=== PATIENT | female | born 1945 | race Caucasian/White ===

== ENCOUNTER 2017-01-03 19:37 | Inpatient (IN) | payer MEDICARE ==
[~2017-01-03] VITALS: Ht 167.6 cm; Wt 52.5 kg
[2017-01-03 19:52] VITALS: BP 125/65; PULSE 67; RESP 16; TEMP 98.6; O2SAT 96
--- NOTE | 2017-01-03 20:22 | PD ---
HPI Chief Complaint: GI Complaint Time Seen by Provider: 20:12 Travel History International Travel<30 days: No Contact w/Intl Traveler<30days: No Traveled to known affect area: No History of Present Illness HPI This 71-year-old female is complaining of abdominal distention and constipation. She is having some discomfort that she rates as a 5 or 6 out of 10. She says she has not had a bowel movement for at least a week. She does take morphine for back pain but she says her back pain seems to be getting better and she hasn't taken as much as she used to. She is on stool softeners. She uses MiraLAX but has not been using it because she is here on vacation. She had tried the medication for opioid-induced constipation without success. PFSH Past Medical History ?: Not Past Surgical History Cardiac Surgery: Yes Social History Tobacco Use: Yes Allergies-Medications (Allergen,Severity, Reaction): Coded Allergies: Penicillin (Verified Allergy, Intermediate, Rash, 01/03/17) Reported Meds & Prescriptions Reported Meds & Active Scripts Active Reported Atorvastatin (Atorvastatin Calcium) 10 Mg Tab 10 Mg PO HS Metoprolol Tartrate 25 Mg Tab 12.5 Mg PO BID Myrbetriq (Mirabegron) 50 Mg Tab 50 Mg PO HS Miralax (Polyethylene Glycol 3350) 1 Pow Pow Unknown Dose PO DIRECTED Vesicare (Solifenacin) 10 Mg Tab 10 Mg PO DAILY Morphine Sulfate CR (Morphine Sulfate) 15 Mg Tab 15 Mg PO BID Colace (Docusate Sodium) 100 Mg Cap 100 Mg PO TID PRN Ranitidine (Ranitidine HCl) 300 Mg Tab 300 Mg PO HS Ventolin Hfa 18 GM Inh (Albuterol Sulfate) 90 Mcg/Act Aer 2 Puff INH Q4-6H PRN Pantoprazole (Pantoprazole Sodium) 40 Mg Tab 40 Mg PO BID Alendronate (Alendronate Sodium) 70 Mg Tab 70 Mg PO Q7D Spiriva Handihaler (Tiotropium Inh) 18 Mcg Cap 18 Mcg INH DAILY 1 capsule = 18 mcg Review of Systems General / Constitutional: No: Fever, Chills Eyes: No: Diploplia HENT: No: Headaches, Vertigo Cardiovascular: No: Chest Pain or Discomfort, Palpitations Respiratory: No: Cough, Shortness of Breath Gastrointestinal: Positive: Abdominal Pain, Constipation Genitourinary: No: Urgency, Frequency Musculoskeletal: No: Myalgias, Arthralgias Skin: No Rash, No Itching Neurologic: No: Weakness Hematologic/Lymphatic: No: Easy Bruising Physical Exam Narrative GENERAL: Thin female SKIN: Focused skin assessment warm/dry. HEAD: Atraumatic. Normocephalic. EYES: Pupils equal and round. No scleral icterus. No injection or drainage. ENT: No nasal bleeding or discharge. Mucous membranes pink and moist. NECK: Trachea midline. No JVD. CARDIOVASCULAR: Regular rate and rhythm. No murmur appreciated. RESPIRATORY: No accessory muscle use. Clear to auscultation. Breath sounds equal bilaterally. GASTROINTESTINAL: Abdomen soft, non-tender, mild distention. Hepatic and splenic margins not palpable. Rectal exam there is moderate amount of stool but it is soft. A small amount was removed and a Dulcolax suppository inserted MUSCULOSKELETAL: No obvious deformities. No clubbing. No cyanosis. No edema. NEUROLOGICAL: Awake and alert. No obvious cranial nerve deficits. Motor grossly within normal limits. Normal speech. PSYCHIATRIC: Appropriate mood and affect; insight and judgment normal. Data Data Last Documented VS Vital Signs Date Time Temp Pulse Resp B/P Pulse Ox O2 Delivery O2 Flow Rate FiO2 01/03/17 22:20 86 16 165/72 99 Room Air 01/03/17 19:52 98.6 Orders Complete Blood Count With Diff (01/03/17 20:19) Comprehensive Metabolic Panel (01/03/17 20:19) Urinalysis - C+S If Indicated (01/03/17 20:19) Ct Abd/Pel W Iv Contrast(Rout) (01/03/17 20:19) Bisacodyl Supp (Dulcolax Supp) (01/03/17 20:30) Diatrizoate Liq ( Gastroangela Liq) (01/03/17 20:27) Oral Contrast - Adult (01/03/17 20:29) Urine Culture (01/03/17 21:20) Iohexol 350 Inj (Omnipaque 350 Inj) (01/03/17 22:20) Ns + Kcl 20 Meq Inj (Ns + Kcl 20 Meq Inj (01/03/17 23:15) Insert Ng Tube (01/03/17 23:14) Place Ng Tube To Low Intermit (01/03/17 23:14) Admit Order (Ed Use Only) (01/03/17 23:35) Labs Laboratory Tests Test 01/03/17 01/03/17 20:40 21:20 White Blood Count 13.0 TH/MM3 Red Blood Count 4.63 MIL/MM3 Hemoglobin 13.8 GM/DL Hematocrit 41.7 % Mean Corpuscular Volume 90.1 FL Mean Corpuscular Hemoglobin 29.7 PG Mean Corpuscular Hemoglobin 33.0 % Concent Red Cell Distribution Width 13.8 % Platelet Count 289 TH/MM3 Mean Platelet Volume 9.9 FL Neutrophils (%) (Auto) 71.2 % Lymphocytes (%) (Auto) 19.6 % Monocytes (%) (Auto) 7.2 % Eosinophils (%) (Auto) 1.2 % Basophils (%) (Auto) 0.8 % Neutrophils # (Auto) 9.3 TH/MM3 Lymphocytes # (Auto) 2.5 TH/MM3 Monocytes # (Auto) 0.9 TH/MM3 Eosinophils # (Auto) 0.2 TH/MM3 Basophils # (Auto) 0.1 TH/MM3 CBC Comment AUTO DIFF Differential Comment AUTO DIFF CONFIRMED Sodium Level 141 MEQ/L Potassium Level 3.8 MEQ/L Chloride Level 103 MEQ/L Carbon Dioxide Level 29.9 MEQ/L Anion Gap 8 MEQ/L Blood Urea Nitrogen 12 MG/DL Creatinine 0.65 MG/DL Estimat Glomerular Filtration 90 ML/MIN Rate Random Glucose 127 MG/DL Calcium Level 9.1 MG/DL Total Bilirubin 0.3 MG/DL Aspartate Amino Transf 15 U/L (AST/SGOT) Alanine Aminotransferase 23 U/L (ALT/SGPT) Alkaline Phosphatase 82 U/L Total Protein 7.4 GM/DL Albumin 3.8 GM/DL Urine Color YELLOW Urine Turbidity CLEAR Urine pH 7.0 Urine Specific [place] 1.009 Urine Protein NEG mg/dL Urine Glucose (UA) NEG mg/dL Urine Ketones NEG mg/dL Urine Occult Blood NEG Urine Nitrite NEG Urine Bilirubin NEG Urine Leukocyte Esterase TRACE Urine WBC 9-14 /hpf Urine WBC Clumps RARE Urine Squamous Epithelial 0-5 /hpf Cells Urine Bacteria MANY /hpf Microscopic Urinalysis Comment CULTURE INDICATED MDM Medical Decision Making Medical Screen Exam Complete: Yes Emergency Medical Condition: Yes Medical Record Reviewed: Yes Differential Diagnosis Differential diagnosis includes constipation, bowel obstruction Narrative Course Related to the rectal exam I disimpacted as much as I could but most of the stool was beyond the reach of the finger. The stool was soft. CT scan was obtained and shows large amounts the rectum. The small bowel was dilated throughout stomach is markedly elevated. Patient is distended and an NG tube will be inserted try to make the patient comfortable. In view of this finding of obstruction she will require admission for further treatment Diagnosis Primary Impression: Constipation Qualified Code: K59.03 - Drug-induced constipation Additional Impression: Bowel obstruction Qualified Code: K56.41 - Fecal impaction Wilman Flores MD Jan 03, 2017 20:22
[2017-01-03] MEDS ORDERED: DIATRIZOATE MEGLUM/DIATRIZOATE SOD 9 ML CUP ONE (20:27)
[2017-01-03] MEDS ORDERED: BISACODYL 10 MG SUPP RECTAL ONE (20:30)
[2017-01-03 20:59] LABS: CHLORIDE 103 MEQ/L (98-107); POTASSIUM 3.8 MEQ/L (3.5-5.1); SODIUM (NA) 141 MEQ/L (136-145)
[2017-01-03 21:03] LABS: AUTOMATED NEUTROPHIL # 9.3 TH/MM3 (1.8-7.7); BASOPHIL # 0.1 TH/MM3 (0-0.2); BASOPHIL % 0.8 % (0.0-2.0); EOSINOPHIL # 0.2 TH/MM3 (0-0.4); EOSINOPHIL % 1.2 % (0.0-4.0); HEMATOCRIT 41.7 % (35.0-46.0); LYMPH % 19.6 % (9.0-44.0); LYMPHOCYTE # 2.5 TH/MM3 (1.0-4.8); MEAN CELL VOLUME 90.1 FL (80.0-100.0); MEAN CORPUSCULAR HEMOGLOBIN 29.7 PG (27.0-34.0); MONO % 7.2 % (0.0-8.0); NEUT % 71.2 % (16.0-70.0); PLATELET COUNT 289 TH/MM3 (150-450); RED BLOOD COUNT 4.63 MIL/MM3 (4.00-5.30); RED CELL DISTRIBUTION WIDTH 13.8 % (11.6-17.2)
[2017-01-03 21:04] LABS: ANION GAP 8 MEQ/L (5-15); BICARBONATE 29.9 MEQ/L (21.0-32.0); BLOOD UREA NITROGEN 12 MG/DL (7-18)
[2017-01-03 21:05] LABS: HEMO FLAGS AUTO DIFF
[2017-01-03 21:07] LABS: ALT (GPT) 23 U/L (10-53); AST (GOT) 15 U/L (15-37); GLOMERULAR FILTRATION RATE 90 ML/MIN (>89)
[2017-01-03 21:09] LABS: TOTAL BILIRUBIN ADULT 0.3 MG/DL (0.2-1.0)
[2017-01-03 21:10] LABS: ALKALINE PHOSPHATASE 82 U/L (45-117)
[2017-01-03] MEDS ORDERED: SPIRCAP INH (21:22)
[2017-01-03] MEDS ORDERED: COLA100C3 PO (21:22)
[2017-01-03] MEDS ORDERED: ALEN1TAB48 PO (21:22)
[2017-01-03] MEDS ORDERED: VENTAER INH (21:22)
[2017-01-03] MEDS ORDERED: METO25TA3 PO (21:22)
[2017-01-03] MEDS ORDERED: RANI300T PO (21:22)
[2017-01-03] MEDS ORDERED: MIRA3350 PO (21:22)
[2017-01-03] MEDS ORDERED: PANT40TA3 PO (21:22)
[2017-01-03] MEDS ORDERED: MIRA50TA PO (21:22)
[2017-01-03] MEDS ORDERED: MORP15TA73 PO (21:22)
[2017-01-03] MEDS ORDERED: ATOR10TA15 PO (21:22)
[2017-01-03] MEDS ORDERED: VESI10TA PO (21:22)
[2017-01-03 21:30] LABS: BLOOD, URINE NEG (NEG); GLUCOSE,URINE NEG (NEG); KETONE, URINE NEG (NEG); NITRITE,URINE NEG (NEG)
[2017-01-03 21:36] LABS: URINE COLOR YELLOW (YELLW/STRAW)
[2017-01-03 21:37] LABS: BACTERIA, URINE MANY /hpf; COMMENT (UR) CULTURE INDICATED; CULTURE IF INDICATED CULTURE INDICATED; SQUAMOUS EPITHELIAL CELL URINE 0-5 /hpf (0-5)
[2017-01-03 21:58] LABS: SCAN/DIFF AUTO DIFF CONFIRMED
[2017-01-03 22:20] VITALS: BP 165/72; PULSE 86; RESP 16; O2SAT 99
[2017-01-03] MEDS ORDERED: IOHEXOL 350 MG/ML 10 ML VIAL (for RAD DIAG) IV ONE (22:20)
--- NOTE | 2017-01-03 23:01 | RADHPO ---
EXAM DATE/TIME: 01/03/2017 22:09 [facility] COMPARISON: No previous studies available for comparison. INDICATIONS : Abdominal distention and constipation for one week. IV CONTRAST: 96 cc Omnipaque 350 (iohexol) IV ORAL CONTRAST: Prescribed oral contrast ingested. RADIATION DOSE: 5.54 CTDIvol (mGy) MEDICAL HISTORY : None SURGICAL HISTORY : Appendectomy. Sigmoid colectomy. Bladder mesh. ENCOUNTER: Initial ACUITY: 1 week PAIN SCALE: 6/10 LOCATION: Abdomen. TECHNIQUE: Volumetric scanning of the abdomen and pelvis was performed. Using automated exposure control and ad justment of the mA and/or kV according to patient size, radiation dose was kept as low as reasonably achievable to obtain optimal diagnostic quality images. FINDINGS: LOWER LUNGS: The visualized lower lungs are clear. LIVER: Homogeneous density without lesion. There is no dilation of the biliary tree. No calcified gallston es. SPLEEN: Normal size without lesion. PANCREAS: Within normal limits. KIDNEYS: Normal in size and shape. There is no mass, stone or hydronephrosis. ADRENAL GLANDS: Within normal limits. VASCULAR: There is no aortic aneurysm. BOWEL/MESENTERY: There is abundant formed stool throughout the colon. There is a massive quantity of stool in the rect um. The small bowel is dilated throughout and the stomach is markedly dilated. ABDOMINAL WALL: Within normal limits. RETROPERITONEUM: There is no lymphadenopathy. BLADDER: No wall thickening or mass. REPRODUCTIVE: Uterus is not seen. INGUINAL: There is no lymphadenopathy or hernia. MUSCULOSKELETAL: Within normal limits for patient age. CONCLUSION: Massive fecal impaction with obstruction. aCs Hernandez MD on January 03, 2017 at 22:56 Board Certified Radiologist. This report was verified electronically.
[2017-01-03] MEDS ORDERED: NS + KCL 20 MEQ INJ 1,000 ML IV SCH (23:15)
[2017-01-03] MEDS ORDERED: SODIUM CHLOR 0.9% 1000 ML INJ 1,000 ML IV SCH (23:26)
[2017-01-03] MEDS ORDERED: SODIUM CHLORIDE 0.9% FLUSH 10 ML FLUSH IV FLUSH PRN (23:30)
[2017-01-03] MEDS ORDERED: ACETAMINOPHEN 325 MG TAB PO PRN (23:30)
[2017-01-03] MEDS ORDERED: BISACODYL 10 MG SUPP RECTAL PRN (23:30)
[2017-01-03] MEDS ORDERED: ONDANSETRON HCL 4 MG/2 ML VIAL IVP PRN (23:30)
[2017-01-04 00:15] VITALS: BP 149/60; PULSE 92; RESP 18; TEMP 98.9; O2SAT 94
[2017-01-04 02:32] VITALS: BP 148/75; PULSE 97; RESP 18; TEMP 99.6; O2SAT 93
[2017-01-04] MEDS: LACTULOSE SYRUP 20 GM/30 ML CUP NG SCH ×4 (03:23→23:36)
[2017-01-04] MEDS: MORPHINE SULFATE 4 MG/ML INJ IV PRN ×3 (06:26→18:18)
[2017-01-04] MEDS ORDERED: ALBUTEROL SULFATE 90 MCG/ACT HFA 8 GM INHALER INH PRN (07:00)
[2017-01-04 07:08] LABS: AUTOMATED NEUTROPHIL # 15.8 TH/MM3 (1.8-7.7); BASOPHIL % 0.2 % (0.0-2.0); EOSINOPHIL # 0.1 TH/MM3 (0-0.4); EOSINOPHIL % 0.7 % (0.0-4.0); HEMATOCRIT 45.4 % (35.0-46.0); LYMPH % 9.9 % (9.0-44.0); LYMPHOCYTE # 1.9 TH/MM3 (1.0-4.8); MEAN CORPUSCULAR HGB CONC 32.2 % (32.0-36.0); MONO % 8.4 % (0.0-8.0); NEUT % 80.8 % (16.0-70.0); PLATELET COUNT 289 TH/MM3 (150-450); RED BLOOD COUNT 5.04 MIL/MM3 (4.00-5.30); RED CELL DISTRIBUTION WIDTH 13.9 % (11.6-17.2); WHITE BLOOD COUNT 19.4 TH/MM3 (4.0-11.0)
[2017-01-04 07:10] LABS: CHLORIDE 100 MEQ/L (98-107); HEMO FLAGS DIFF FINAL; POTASSIUM 3.3 MEQ/L (3.5-5.1); SODIUM (NA) 141 MEQ/L (136-145)
[2017-01-04 07:16] LABS: ANION GAP 12 MEQ/L (5-15)
[2017-01-04 07:17] LABS: BLOOD UREA NITROGEN 9 MG/DL (7-18)
[2017-01-04 07:19] LABS: ALT (GPT) 23 U/L (10-53); AST (GOT) 17 U/L (15-37)
[2017-01-04 07:20] LABS: GLOMERULAR FILTRATION RATE 109 ML/MIN (>89)
[2017-01-04 07:21] LABS: TOTAL BILIRUBIN ADULT 0.5 MG/DL (0.2-1.0)
[2017-01-04 07:22] LABS: ALKALINE PHOSPHATASE 87 U/L (45-117)
[2017-01-04 08:00] VITALS: BP 172/68; PULSE 94; RESP 20; TEMP 98.5; O2SAT 96
--- NOTE | 2017-01-04 09:32 | MB ---
cc: ERIC ORTEGA M.D. DATE OF CONSULTATION: 01/04/2017 REFERRING PHYSICIAN: Dr. Jha Clayton. REASON FOR CONSULTATION: Constipation, abdominal pain. Thank you for the consultation; this is a 71 year-old lady who used Morphine chronically for back pain, she is from [place], here on vacation. She has constipation, managed by MiraLax, Colace and because she was on vacation she stopped her MiraLax to avoid going to the bathroom. She ended up having constipation with reduction of bowel movements for the last two weeks where she did not have any bowel movement in the last few days with distention of her abdomen and severe pain so she came to the hospital because of that. The patient stated that since yesterday she started having a minimal amount of stool, she had colonoscopy two years ago which was unremarkable. PAST MEDICAL HISTORY: Significant for back pain. SOCIAL HISTORY: The patient is a smoker, she denies alcohol abuse. ALLERGIES PENICILLIN MEDICATIONS: The medications were reviewed in her chart. REVIEW OF SYSTEMS All 12 points negative except for history of present illness. PHYSICAL EXAMINATION: IN GENERAL: Alert, oriented, no acute distress. VITAL SIGNS: Vital signs stable. HEAD, EYES, EARS, NOSE, AND THROAT: Pupils equal, round, reactive to light. NECK: Supple. CHEST: Clear. CARDIAC: Regular rate and rhythm. ABDOMEN: Soft, mildly distended and tender, positive bowel sounds. EXTREMITIES: No edema, clubbing or cyanosis. NEUROLOGICALLY: Intact. PSYCHIATRIC: Psychologically appropriate. LABORATORY FINDINGS: White count 19.4. Hemoglobin 14.6. Platelets 289. Liver function tests are normal. Urine culture was pending. CT scan has massive fecal impaction with obstruction. ASSESSMENT AND PLAN: This is a 71 year-old lady with impaction secondary to narcotics, induced. The patient stopped taking medication because she is on vacation, she did not want to go to the bathroom. She is refusing NG tube. Her belly is less distended, she started going to the bathroom yesterday. I recommend giving her two fleets enemas to try and move from below but also maybe slowly give her 0.25 to 0.50 gallon of Golytely and see how she does. We want to make sure that she is not obstructed and that would not cause nausea, vomiting. Also give her one dose of Restoril to see if that would help her constipation. If these measures do not work she may need to be disimpacted digitally and she may need to have either Gastrografin enema or colonoscopy. MD DANAE Quintana/alida /8:57 AM /9:12 AM
[2017-01-04] MEDS ORDERED: SOD PHOSPHATE/SOD BIPHOSPHATE (ADULT) ENEMA 133ML RECTAL PRN (10:00)
[2017-01-04] MEDS ORDERED: SOD PHOSPHATE/SOD BIPHOSPHATE (ADULT) ENEMA 133ML RECTAL ONE (10:00)
[2017-01-04] MEDS ORDERED: PEG (High)/E-LYTE SOLN 4000 ML BTL PO ONE (10:00)
[2017-01-04] MEDS: TIOTROPIUM BROMIDE 18 MCG INH INH SCH (10:38)
[2017-01-04] MEDS: PANTOPRAZOLE SOD 40 MG DELAYED RELEASE TAB PO SCH ×2 (10:39→21:23)
[2017-01-04] MEDS: METOPROLOL TARTRATE 25 MG TAB PO SCH ×2 (10:39→21:00)
[2017-01-04] MEDS: SODIUM CHLORIDE 0.9% FLUSH 10 ML FLUSH IV FLUSH SCH ×2 (10:41→21:00)
[2017-01-04] MEDS ORDERED: POTASSIUM CHLORIDE 10 MEQ CONTROLLED RELEASE TAB PO ONE (11:15)
[2017-01-04] MEDS: NS + KCL 20 MEQ INJ 1,000 ML IV SCH (11:40)
--- NOTE | 2017-01-04 12:21 | HHI.HP ---
[facility] Primary Care Physician Unknown Admission Diagnosis CONSTIPATION, OBSTRUCTION Diagnoses: Chief Complaint: Constipation Travel History International Travel<30 Days: No Contact w/Intl Traveler <30 Da: No Traveled to Known Affected Are: No History of Present Illness This is a 71 year-old female who presents to the emergency room because of worsening constipation. She is on chronic narcotic for back pain and currently on vacation from [place]. She has chronic constipation, managed by MiraLax and Colace. She reports of worsening constipation with no bowel movement for the past 2 weeks associated with abdominal pain and distention and nausea the last few days. She had colonoscopy two years ago which was unremarkable. CT of the abdominal revealed fecal impaction with obstruction and has been recommended further hospitalization. She refused NGT insertion but has been compliant with medications. Reports of having loose stool today. Review of Systems Constitutional: DENIES: Diaphoretic episodes, Fatigue, Fever, Weight gain, Weight loss, Chills, Dizziness, Change in appetite, Night Sweats Endocrine: DENIES: Heat/cold intolerance, Polydipsia, Polyuria, Polyphagia Eyes: DENIES: Blurred vision, Diplopia, Vision loss, Photosensitivity Ears, nose, mouth, throat: DENIES: Tinnitus, Vertigo, Throat pain, Hoarseness, Epistaxis, Odynophagia Respiratory: DENIES: Cough, Wheezing, Hemoptysis, Sputum production, Shortness of breath Cardiovascular: DENIES: Chest pain, Palpitations, Syncope, Dyspnea on Exertion , PND, Lower Extremity Edema, Orthopnea, Claudication Gastrointestinal: COMPLAINS OF: Abdominal pain, Constipation, Nausea, DENIES: Black stools, Bloody stools, Diarrhea, Vomiting, Difficulty Swallowing, Anorexia Genitourinary: DENIES: Urinary frequency, Urinary incontinence, Urgency, Hematuria, Dysuria, Nocturia, Vaginal discharge Integumentary: DENIES: Rash Neurologic: DENIES: Headache, Localized weakness, Seizures, Tremor, Poor Balance Psychiatric: DENIES: Anxiety, Confusion, Depression, Hallucinations, Agitation , Suicidal Ideation, Homicidal Ideation, Delusions Past Family Social History Past Medical History Overactive bladder, hyperthyroidism, HLD, HTN, COPD, "spot" in the lung s/p CT, recent work up for CP with ECHO and stress test for cardiac cath Past Surgical History Tonsillectomy, cardiac surgery, appendectomy, bladder sling and mesh, sigmoid colectomy Reported Medications Atorvastatin (Atorvastatin Calcium) 10 Mg Tab 10 Mg PO HS Metoprolol Tartrate 25 Mg Tab 12.5 Mg PO BID Myrbetriq (Mirabegron) 50 Mg Tab 50 Mg PO HS Miralax (Polyethylene Glycol 3350) 1 Pow Pow Unknown Dose PO DIRECTED Vesicare (Solifenacin) 10 Mg Tab 10 Mg PO DAILY Morphine Sulfate CR (Morphine Sulfate) 15 Mg Tab 15 Mg PO BID Colace (Docusate Sodium) 100 Mg Cap 100 Mg PO TID PRN Ranitidine (Ranitidine HCl) 300 Mg Tab 300 Mg PO HS Ventolin Hfa 18 GM Inh (Albuterol Sulfate) 90 Mcg/Act Aer 2 Puff INH Q4-6H PRN Pantoprazole (Pantoprazole Sodium) 40 Mg Tab 40 Mg PO BID Alendronate (Alendronate Sodium) 70 Mg Tab 70 Mg PO Q7D Spiriva Handihaler (Tiotropium Inh) 18 Mcg Cap 18 Mcg INH DAILY 1 capsule = 18 mcg Allergies: Coded Allergies: Penicillin (Verified Allergy, Intermediate, Rash, 01/03/17) Family History CVA Social History Continues to smoke and does not drink Physical Exam Vital Signs Vital Signs Date Time Temp Pulse Resp B/P Pulse Ox O2 Delivery O2 Flow Rate FiO2 01/04/17 08:00 98.5 94 20 172/68 96 01/04/17 06:31 20 01/04/17 02:32 99.6 97 18 148/75 93 01/04/17 00:15 18 01/04/17 00:15 98.9 92 18 149/60 94 Room Air 01/03/17 22:20 86 16 165/72 99 Room Air 01/03/17 19:52 98.6 67 16 125/65 96 Physical Exam GENERAL: This is a well-nourished, well-developed patient, in no apparent distress. SKIN: No rashes, ecchymoses or lesions. Cool and dry. HEAD: Atraumatic. Normocephalic. No temporal or scalp tenderness. EYES: Pupils equal round and reactive. Extraocular motions intact. No scleral icterus. No injection or drainage. ENT: Nose without bleeding, purulent drainage or septal hematoma. Throat without erythema, tonsillar hypertrophy or exudate. Uvula midline. Airway patent. NECK: Trachea midline. No JVD or lymphadenopathy. Supple, nontender, no meningeal signs. CARDIOVASCULAR: Regular rate and rhythm without murmurs, gallops, or rubs. RESPIRATORY: Clear to auscultation. Breath sounds equal bilaterally. No wheezes , rales, or rhonchi. GASTROINTESTINAL: Abdomen soft, slightly tender lower quadrants, nondistended. No guarding. MUSCULOSKELETAL: Extremities without clubbing, cyanosis, or edema. No joint tenderness, effusion, or edema noted. No calf tenderness. Negative Homans sign bilaterally. NEUROLOGICAL: Awake and alert. Cranial nerves II through XII intact. Motor and sensory grossly within normal limits. Five out of 5 muscle strength in all muscle groups. Normal speech. Laboratory Laboratory Tests Test 01/03/17 01/03/17 01/04/17 20:40 21:20 06:35 White Blood Count 13.0 19.4 Red Blood Count 4.63 5.04 Hemoglobin 13.8 14.6 Hematocrit 41.7 45.4 Mean Corpuscular Volume 90.1 90.0 Mean Corpuscular Hemoglobin 29.7 29.0 Mean Corpuscular Hemoglobin 33.0 32.2 Concent Red Cell Distribution Width 13.8 13.9 Platelet Count 289 289 Mean Platelet Volume 9.9 9.7 Neutrophils (%) (Auto) 71.2 80.8 Lymphocytes (%) (Auto) 19.6 9.9 Monocytes (%) (Auto) 7.2 8.4 Eosinophils (%) (Auto) 1.2 0.7 Basophils (%) (Auto) 0.8 0.2 Neutrophils # (Auto) 9.3 15.8 Lymphocytes # (Auto) 2.5 1.9 Monocytes # (Auto) 0.9 1.6 Eosinophils # (Auto) 0.2 0.1 Basophils # (Auto) 0.1 0.0 CBC Comment AUTO DIFF DIFF FINAL Differential Comment AUTO DIFF CONFIRMED Sodium Level 141 141 Potassium Level 3.8 3.3 Chloride Level 103 100 Carbon Dioxide Level 29.9 29.0 Anion Gap 8 12 Blood Urea Nitrogen 12 9 Creatinine 0.65 0.55 Estimat Glomerular Filtration 90 109 Rate Random Glucose 127 134 Calcium Level 9.1 9.3 Total Bilirubin 0.3 0.5 Aspartate Amino Transf 15 17 (AST/SGOT) Alanine Aminotransferase 23 23 (ALT/SGPT) Alkaline Phosphatase 82 87 Total Protein 7.4 7.7 Albumin 3.8 3.9 Urine Color YELLOW Urine Turbidity CLEAR Urine pH 7.0 Urine Specific [place] 1.009 Urine Protein NEG Urine Glucose (UA) NEG Urine Ketones NEG Urine Occult Blood NEG Urine Nitrite NEG Urine Bilirubin NEG Urine Leukocyte Esterase TRACE Urine WBC 9-14 Urine WBC Clumps RARE Urine Squamous Epithelial 0-5 Cells Urine Bacteria MANY Microscopic Urinalysis Comment CULTURE INDICATED Magnesium Level 1.9 Date/Time Procedure Status Source Growth 01/03/17 21:20 Urine Culture Received Urine Clean Catch Pending Result Diagram: 01/04/17 0635 01/04/17 0635 Imaging Last Impressions Abdomen/Pelvis CT 01/03/172018 Signed Impressions: Service Date/Time: Tuesday, January 03, 2017 22:09 - CONCLUSION: Massive fecal impaction with obstruction. Cas Hernandez MD Assessment and Plan Assessment and Plan Narcotic induced fecal impaction. Patient states she had 2 small bowel movements yesterday and loose stool today likely from seepage. Discussed with gastroenterology, start GoLYTELY and fleets enema 2. If still impacted, consider Relistor and Gastrografin enema. May start liquid diet. Patient refused NGT insertion Leukocytosis likely reactive. We'll monitor Hypokalemia. We'll replace. Check magnesium Hyperglycemia. We'll monitor Abnormal urinalysis. No UTI symptoms. Monitor urine culture Chronic medical conditions of Overactive bladder, hyperthyroidism, HLD, HTN, COPD, "spot" in the lung s/p CT and recent work up for CP with ECHO and stress test for cardiac cath. Continue outpatient medications as appropriate DVT prophylaxis with SCD and early ambulation Discussed Condition With Patient and Physician Certification 2 Midnight Certification Type: Admission for Inpatient Services Order for Inpatient Services The services are ordered in accordance with Medicare regulations or non- Medicare payer requirements, as applicable. In the case of services not specified as inpatient-only, they are appropriately provided as inpatient services in accordance with the 2-midnight benchmark. Estimated LOS (days): 2 days is the estimated time the patient will need to remain in the hospital, assuming treatment plan goals are met and no additional complications. Post-Hospital Plan: Not yet determined Jah Clayton MD Jan 04, 2017 12:21
[2017-01-04] MEDS: TOLTERODINE TARTRATE 4 MG CAP LA PO SCH (15:08)
[2017-01-04 16:00] VITALS: BP 107/60; PULSE 80; RESP 18; TEMP 96.9; O2SAT 96
[2017-01-04 20:00] VITALS: BP 94/52; PULSE 85; RESP 20; TEMP 97.9; O2SAT 99
[2017-01-04] MEDS ORDERED: ATORVASTATIN 10 MG TAB PO SCH (21:00)
[2017-01-04] MEDS ORDERED: NON-FORMULARY DRUG (Mirabegron (Myrbetriq) 50 MG) PO SCH (21:00)
[2017-01-04] MEDS: ACETAMINOPHEN/HYDROcodone 325 MG/5 MG TAB PO PRN (23:40)
[2017-01-05] VITALS: BP 109/54; PULSE 86; RESP 18; TEMP 98.5; O2SAT 97
[2017-01-05] MEDS: NS + KCL 20 MEQ INJ 1,000 ML IV SCH (07:32)
[2017-01-05] MEDS: ACETAMINOPHEN/HYDROcodone 325 MG/5 MG TAB PO PRN ×2 (07:41→09:48)
[2017-01-05 08:00] VITALS: BP 117/59; PULSE 86; RESP 18; TEMP 97; O2SAT 98
[2017-01-05] MEDS: LACTULOSE SYRUP 20 GM/30 ML CUP NG SCH (08:00)
[2017-01-05 08:34] LABS: AUTOMATED NEUTROPHIL # 7.5 TH/MM3 (1.8-7.7); BASOPHIL % 0.3 % (0.0-2.0); EOSINOPHIL # 0.1 TH/MM3 (0-0.4); HEMATOCRIT 38.3 % (35.0-46.0); HEMO FLAGS DIFF FINAL; LYMPHOCYTE # 1.9 TH/MM3 (1.0-4.8); MEAN CELL VOLUME 90.3 FL (80.0-100.0); MEAN CORPUSCULAR HEMOGLOBIN 30.3 PG (27.0-34.0); MEAN CORPUSCULAR HGB CONC 33.6 % (32.0-36.0); MONO % 8.8 % (0.0-8.0); NEUT % 71.9 % (16.0-70.0); PLATELET COUNT 258 TH/MM3 (150-450); RED BLOOD COUNT 4.25 MIL/MM3 (4.00-5.30); RED CELL DISTRIBUTION WIDTH 13.8 % (11.6-17.2); WHITE BLOOD COUNT 10.4 TH/MM3 (4.0-11.0)
[2017-01-05 09:02] LABS: BICARBONATE 25.4 MEQ/L (21.0-32.0); MAGNESIUM 1.9 MG/DL (1.5-2.5)
[2017-01-05] MEDS: TIOTROPIUM BROMIDE 18 MCG INH INH SCH (09:40)
[2017-01-05] MEDS: TOLTERODINE TARTRATE 4 MG CAP LA PO SCH (09:40)
[2017-01-05] MEDS: METOPROLOL TARTRATE 25 MG TAB PO SCH (09:40)
[2017-01-05] MEDS: PANTOPRAZOLE SOD 40 MG DELAYED RELEASE TAB PO SCH (09:40)
--- NOTE | 2017-01-05 10:13 | HHI.GIFU ---
Subjective Remarks feels ok had multiple large BMs. wants to go home Objective Vitals I&O Vital Signs Date Time Temp Pulse Resp B/P Pulse Ox O2 Delivery O2 Flow Rate FiO2 01/05/17 08:00 97.0 86 18 117/59 98 01/05/17 00:00 98.5 86 18 109/54 97 01/04/17 20:00 97.9 85 20 94/52 99 01/04/17 16:00 96.9 80 18 107/60 96 I/O 01/04/17 01/04/17 01/04/17 01/05/17 01/05/17 01/05/17 07:00 15:00 23:00 07:00 15:00 23:00 Intake Total 437 ml 1425 ml 2165 ml 480 ml Output Total 1000 ml 1 ml Balance 437 ml 425 ml 2164 ml 480 ml Intake Oral 1425 ml 1440 ml 480 ml IV Total 437 ml 725 ml Output Stool Total 1 ml Emesis 1000 ml # Voids 6 2 3 # Bowel Movements 1 5 5 3 Laboratory Laboratory Tests Test 01/05/17 08:10 White Blood Count 10.4 Red Blood Count 4.25 Hemoglobin 12.9 Hematocrit 38.3 Mean Corpuscular Volume 90.3 Mean Corpuscular Hemoglobin 30.3 Mean Corpuscular Hemoglobin 33.6 Concent Red Cell Distribution Width 13.8 Platelet Count 258 Mean Platelet Volume 9.4 Neutrophils (%) (Auto) 71.9 Lymphocytes (%) (Auto) 18.0 Monocytes (%) (Auto) 8.8 Eosinophils (%) (Auto) 1.0 Basophils (%) (Auto) 0.3 Neutrophils # (Auto) 7.5 Lymphocytes # (Auto) 1.9 Monocytes # (Auto) 0.9 Eosinophils # (Auto) 0.1 Basophils # (Auto) 0.0 CBC Comment DIFF FINAL Differential Comment Sodium Level 143 Potassium Level 4.0 Chloride Level 108 Carbon Dioxide Level 25.4 Anion Gap 10 Blood Urea Nitrogen 4 Creatinine 0.55 Estimat Glomerular Filtration 109 Rate Random Glucose 128 Calcium Level 8.1 Magnesium Level 1.9 Date/Time Procedure Status Source Growth 01/03/17 21:20 Urine Culture - Preliminary Resulted Urine Clean Catch Group D Enterococcus Physical Exam HEENT: Pupils round and reactive to light; normocephalic; atraumatic; no jaundice. Throat is clear. NECK: Neck is supple, no JVD, no lymphadenopathy. CHEST: Chest is clear to auscultation and percussion. CARDIAC: Regular rate and rhythm with no murmur gallop or rubs. ABDOMEN: Soft, nondistended, nontender; no hepatosplenomegaly; bowel sounds are present in all four quadrants. EXTREMITIES: No clubbing, cyanosis, or edema. SKIN: Normal; no rash; no jaundice. MEDICAL TRANSCRIPTION EDITOR: No focal deficits; alert and oriented times three. Assessment and Plan Plan sever constipation induced by narcotic, resolved with laxatives and enemas ok to DC home, keep taking stool softener Edwin Ty MD Jan 05, 2017 10:13
--- NOTE | 2017-01-05 10:59 | HHI.PR ---
Subjective Remarks Follow-up constipation. States she had several formed BM overnight and feels much better. She wants to go home. Seen with . Discussed with RN Objective Vitals Vital Signs Date Time Temp Pulse Resp B/P Pulse Ox O2 Delivery O2 Flow Rate FiO2 01/05/17 08:00 97.0 86 18 117/59 98 01/05/17 00:00 98.5 86 18 109/54 97 01/04/17 20:00 97.9 85 20 94/52 99 01/04/17 16:00 96.9 80 18 107/60 96 I/O 01/04/17 01/04/17 01/04/17 01/05/17 01/05/17 01/05/17 07:00 15:00 23:00 07:00 15:00 23:00 Intake Total 437 ml 1425 ml 2165 ml 480 ml Output Total 1000 ml 1 ml Balance 437 ml 425 ml 2164 ml 480 ml Intake Oral 1425 ml 1440 ml 480 ml IV Total 437 ml 725 ml Output Stool Total 1 ml Emesis 1000 ml # Voids 6 2 3 # Bowel Movements 1 5 5 3 Result Diagram: 01/05/17 0810 01/05/17 0810 Imaging Last Impressions Abdomen/Pelvis CT 01/03/172018 Signed Impressions: Service Date/Time: Tuesday, January 03, 2017 22:09 - CONCLUSION: Massive fecal impaction with obstruction. Cas Hernandez MD Objective Remarks GENERAL: This is a well-nourished, well-developed patient, in no apparent distress. SKIN: No rashes, ecchymoses or lesions. Cool and dry. HEAD: Atraumatic. Normocephalic. No temporal or scalp tenderness. EYES: Pupils equal round and reactive. Extraocular motions intact. No scleral icterus. No injection or drainage. ENT: Nose without bleeding, purulent drainage or septal hematoma. Throat without erythema, tonsillar hypertrophy or exudate. Uvula midline. Airway patent. NECK: Trachea midline. No JVD or lymphadenopathy. Supple, nontender, no meningeal signs. CARDIOVASCULAR: Regular rate and rhythm without murmurs, gallops, or rubs. RESPIRATORY: Clear to auscultation. Breath sounds equal bilaterally. No wheezes , rales, or rhonchi. GASTROINTESTINAL: Abdomen soft, nontender, nondistended. No guarding. MUSCULOSKELETAL: Extremities without clubbing, cyanosis, or edema. No joint tenderness, effusion, or edema noted. No calf tenderness. Negative Homans sign bilaterally. NEUROLOGICAL: Awake and alert. Cranial nerves II through XII intact. Motor and sensory grossly within normal limits. Five out of 5 muscle strength in all muscle groups. Normal speech. Procedures none A/P Problem List: (1) Constipation ICD Code: K59.00 Status: Acute (2) Bowel obstruction ICD Code: K56.60 Status: Acute Assessment and Plan Narcotic induced fecal impaction. Resolved status post GoLYTELY and fleets enema 2. Tolerating regular diet. Patient advised to cut back or discontinue narcotic and to be compliant with bowel regimen Leukocytosis likely reactive. Improved. We'll monitor Hypokalemia. Improved Hyperglycemia. A1c 6 Abnormal urinalysis. No UTI symptoms. Monitor urine culture growing group D enterococcus. Start Macrodantin Chronic medical conditions of Overactive bladder, hyperthyroidism, HLD, HTN, COPD, "spot" in the lung s/p CT and recent work up for CP with ECHO and stress test for cardiac cath. Continue outpatient medications as appropriate DVT prophylaxis with SCD and early ambulation Discharge Planning Discharge patient to home. Patient is significantly improved earlier than expected Condition on discharge: Improved Regular Diet as tolerated Ad [place] activity no driving Rx written: Macrodantin Follow-up with primary care physician in one week Problem Qualifiers (1) Constipation: Qualified Code: K59.03 - Drug-induced constipation (2) Bowel obstruction: Qualified Code: K56.41 - Fecal impaction Jah Clayton MD Jan 05, 2017 10:59
--- NOTE | 2017-01-05 11:00 | HHI.DCPOC ---
Discharge Care Plan Diagnosis: (1) Constipation (2) Bowel obstruction Your Health Problems Are: Appetite Changes Exercise Tolerance Goals to Promote Your Health * To prevent worsening of your condition and complications * To maintain your health at the optimal level Directions to Meet Your Goals Take your medications as prescribed Follow your dietary instruction Follow activity as directed Keep your appointments as scheduled Take your immunizations and boosters as scheduled If your symptoms worsen call your PCP, if no PCP go to Urgent Care Center or Emergency Room Smoking is Dangerous to Your Health. Avoid second hand smoke Call the 24-hour hour crisis hotline for domestic abuse at Jah Clayton MD Jan 05, 2017 11:00
[2017-01-05 12:50] LABS: HEMOGLOBIN A1a 1.4 %; HEMOGLOBIN A1b 1.7 %; HEMOGLOBIN Ao 84.4 %; HEMOGLOBIN LA1C 2.1 %
[2017-01-05] MEDS ORDERED: MACR100C2 PO (15:38)
== END 2017-01-05 11:21 | disposition home or self-care (01) | DRG 390 ==
LOC: PHED 19:37 → PHEDA 23:37 → OBSVTOIN 01-04 01:20 → PH3A 01-04 02:15
PROVIDERS: ADMIT Internal Medicine; ATTEND Internal Medicine
DX: K56.41 Fecal impaction (principal); J44.9 Chronic obstructive pulmonary disease, unspecified; E05.90 Thyrotoxicosis, unspecified without thyrotoxic crisis or storm; I10 Essential (primary) hypertension; D72.829 Elevated white blood cell count, unspecified; T40.2X5A Adverse effect of other opioids, initial encounter; E78.5 Hyperlipidemia, unspecified; E87.6 Hypokalemia; N32.81 Overactive bladder; F17.200 Nicotine dependence, unspecified, uncomplicated; Z79.891 Long term (current) use of opiate analgesic
CPT/HCPCS: 74177; 80048; 80053; 81001; 83036; 83735; 85025; 87077; 87086; 87186; J2270; J2405; J3480; J7030; Q9963; Q9967